=== PATIENT | male | born 1970 | race Caucasian/White ===

== ENCOUNTER 2019-11-27 17:50 | Emergency (ER) | payer OTHER ==
[~2019-11-27] VITALS: Ht 175.3 cm; Wt 68.0 kg
== END 2019-11-28 02:38 | disposition home or self-care (01) ==
LOC: ED 17:50
DX: R53.1 Weakness (principal); F17.200 Nicotine dependence, unspecified, uncomplicated
CPT/HCPCS: 99284

== ENCOUNTER 2019-11-30 07:02 | Emergency (ER) | payer SELFPAY ==
[~2019-11-30] VITALS: Ht 175.3 cm; Wt 68.0 kg
--- OUTSIDE RECORDS SUMMARY | 2019-11-30 07:04 | XMS ---
PreManage Notification: ELROY MEHTA Security Operations Administrator Events No recent Security Events currently on file CRITERIA MET - [facility] - 2 Visits in 30 Days CARE PROVIDERS There are no care providers on record at this time. Ambar has no Care Guidelines for this patient. [facility] NOTE: Visits indicate total known visits. ED/C VISIT TRACKING (12 MO.) [facility] COMPLAINT: - COLD 11/27/2019 17:50 [facility] [place] TYPE: Emergency COMPLAINT: - WEAKNESS INPATIENT VISIT TRACKING (12 MO.) No inpatient visits to display in this time frame [email or web address]
== END 2019-11-30 08:34 | disposition home or self-care (01) ==
LOC: ED 07:02
DX: R53.1 Weakness (principal); Z59.0 Homelessness; F17.200 Nicotine dependence, unspecified, uncomplicated
CPT/HCPCS: 99284

== ENCOUNTER 2019-12-01 12:34 | Emergency (ER) | payer SELFPAY ==
[~2019-12-01] VITALS: Ht 175.3 cm; Wt 68.0 kg
--- OUTSIDE RECORDS SUMMARY | 2019-12-01 12:36 | XMS ---
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 Ambar has no Care Guidelines for this patient. Jagdish VISIT COUNT (12 MO.) [address] [facility] TOTAL 3 NOTE: Visits indicate total known visits. ED/C VISIT TRACKING (12 MO.) 12/01/2019 12:[address] [facility] [facility] [place] TYPE: Emergency COMPLAINT: - SUICIDAL THOUGHTS 11/30/2019 07:02 [facility] [place] TYPE: Emergency COMPLAINT: - COLD 11/27/2019 17:50 [facility] [place] TYPE: Emergency COMPLAINT: - WEAKNESS DIAGNOSES: - Weakness - Nicotine dependence, unspecified, uncomplicated INPATIENT VISIT TRACKING (12 MO.) No inpatient visits to display in this time frame [email or web address]
== END 2019-12-01 17:15 | disposition home or self-care (01) ==
LOC: ED 12:34
DX: T67.5XXA Heat exhaustion, unspecified, initial encounter (principal); M62.82 Rhabdomyolysis; F17.200 Nicotine dependence, unspecified, uncomplicated; Z59.0 Homelessness
CPT/HCPCS: 80053; 80176; 81001; 82550; 84443; 85025; 99284; G0480